=== PATIENT | male | born 1950 | race Caucasian/White ===

== ENCOUNTER 2021-07-27 22:28 | Emergency (ER) | payer OTHER ==
[~2021-07-27] VITALS: Ht 190.5 cm; Wt 118.0 kg
[~2021-07-27 22:28] MED LIST: CLON1TAB96 PO; DOCU100C40 PO; GLIP5TAB13 PO; LANTUS SQ; NYSPWD TP; TRAM50TA2 PO; VENL150C58 PO
[2021-07-27 22:39] VITALS: BP 100/50
[2021-07-27 23:14] LABS: BASOPHILS # (AUTO) 0.1 X10'3 (0-0.2); BASOPHILS % (AUTO) 0.9 % (0-1); EOSINOPHILS # (AUTO) 0.1 X10'3 (0-0.9); EOSINOPHILS % (AUTO) 0.9 % (0-6); HEMATOCRIT 38.8 % (42.0-52.0); HEMOGLOBIN 13.3 g/dl (14.0-17.9); LYMPHOCYTES # (AUTO) 2.2 X10'3 (1.1-4.8); LYMPHOCYTES % (AUTO) 29.1 % (21-51); MEAN CORPUSCULAR HEMOGLOBIN 32.6 PG (27.0-31.0); MEAN CORPUSCULAR HGB CONC 34.3 g/dL (33.0-36.5); MEAN CORPUSCULAR VOLUME 95.2 FL (78-98); MEAN PLATELET VOLUME 9.3 FL (7.4-10.4); MONOCYTES # (AUTO) 0.8 X10'3 (0-0.9); MONOCYTES % (AUTO) 9.9 % (2-12); NEUTROPHILS # (AUTO) 4.5 X10'3 (1.8-7.7); NEUTROPHILS % (AUTO) 59.2 % (42-75); PLATELET COUNT 215 X10'3 (140-440); RED BLOOD COUNT 4.07 X10'6 (4.70-6.10); RED CELL DISTRIBUTION WIDTH 14.3 % (11.5-14.5); WHITE BLOOD COUNT 7.6 X10'3 (4.5-11.0)
[2021-07-27 23:26] LABS: ALANINE AMINOTRANSFERASE 33 U/L (12-78); ALBUMIN 3.6 G/DL (3.4-5.0); ALKALINE PHOSPHATASE 67 IU/L (46-116); ANION GAP 10 (8-16); ASPARTATE AMINO TRANSFERASE 25 U/L (10-37); BILIRUBIN,TOTAL 1.2 MG/DL (0.1-1.0); BLOOD UREA NITROGEN 19 MG/DL (7-18); BUN/CREATININE RATIO 13.9 (5.4-32.0); CALCIUM 9.6 MG/DL (8.5-10.1); CHLORIDE 107 MMOL/L (99-107); CREATININE 1.37 MG/DL (0.60-1.10); GLUCOSE 149 MG/DL (70-104); LIPASE 152 U/L (73-393); POTASSIUM 3.8 MMOL/L (3.5-5.1); SODIUM 142 MMOL/L (135-145); TOTAL CARBON DIOXIDE 25.2 MMOL/L (24-32); TOTAL PROTEIN 7.3 G/DL (6.4-8.2); eGFR 52 ML/MIN
[2021-07-28] MEDS ORDERED: morphine 4 MG/ML inj SYRINge IV ONE (00:05)
[2021-07-28] MEDS ORDERED: ondansetron/PF 4mg/2ml inj IV ONE (00:05)
[2021-07-28 00:11] LABS: CLARITY,URINE CLEAR (Clear); COLOR,URINE YELLOW (Yellow); GLUCOSE, URINE NEGATIVE (Neg); KETONES,URINE NEGATIVE (Neg); LEUKOCYTE ESTERASE ,URINE NEGATIVE (Neg); NITRITES, URINE NEGATIVE (Neg); OCCULT BLOOD,URINE NEGATIVE (Neg); PH,URINE 5.5 (4.8-8.0); PROTEIN,URINE NEGATIVE (Neg); UROBILINOGEN,URINE 0.2 E.U/dL (0.2-1.0)
[2021-07-28 00:18] LABS: UA COLLECTION TYPE CLN CATCH MIDSTREAM
== END 2021-07-28 01:30 | disposition home or self-care (01) ==
LOC: ER 22:29
DX: N21.0 Calculus in bladder (principal); E78.00 Pure hypercholesterolemia, unspecified; E11.9 Type 2 diabetes mellitus without complications; F32.9 Major depressive disorder, single episode, unspecified; Z79.899 Other long term (current) drug therapy
CPT/HCPCS: 36415; 74176; 80053; 81003; 83690; 85025; 96374; 96375; 99284; J2270; J2405

== ENCOUNTER 2022-01-07 16:30 | Emergency (ER) | payer OTHER ==
[~2022-01-07] VITALS: Ht 190.5 cm; Wt 109.1 kg
[2022-01-07 17:03] VITALS: BP 164/74
[2022-01-07] MEDS ORDERED: CefTRIAXone 1000mg IM Kit (w/lidocaine diluent) IM STA (18:18)
[2022-01-07] MEDS ORDERED: DOXYCYCLINE 100MG CAPSULE PO ONE (18:20)
[2022-01-07] MEDS ORDERED: DOXY-1 PO (18:21)
[2022-01-07] MEDS ORDERED: fluconazole 150mg tablet PO ONE (19:30)
[2022-01-07 19:42] LABS: CLARITY,URINE CLEAR (Clear); COLOR,URINE YELLOW (Yellow); GLUCOSE, URINE NEGATIVE (Neg); KETONES,URINE NEGATIVE (Neg); LEUKOCYTE ESTERASE ,URINE NEGATIVE (Neg); NITRITES, URINE NEGATIVE (Neg); OCCULT BLOOD,URINE NEGATIVE (Neg); PROTEIN,URINE NEGATIVE (Neg); UROBILINOGEN,URINE 0.2 E.U/dL (0.2-1.0)
[2022-01-07 19:54] LABS: UA COLLECTION TYPE VOIDED
== END 2022-01-07 20:07 | disposition home or self-care (01) ==
LOC: ER 16:31
DX: N45.1 Epididymitis (principal); B35.6 Tinea cruris; N50.811 Right testicular pain; E78.00 Pure hypercholesterolemia, unspecified; E11.9 Type 2 diabetes mellitus without complications; Z87.442 Personal history of urinary calculi; Z85.038 Personal history of other malignant neoplasm of large intestine; Z91.041 Radiographic dye allergy status; Z79.4 Long term (current) use of insulin; Z79.2 Long term (current) use of antibiotics; Z79.899 Other long term (current) drug therapy
CPT/HCPCS: 36415; 76870; 81003; 87491; 87591; 93976; 96372; 99284; J0696

== ENCOUNTER 2024-04-02 16:00 | Emergency (ER) | payer OTHER, MEDICARE ==
[~2024-04-02] VITALS: Ht 188 cm; Wt 105.0 kg
[~2024-04-02 16:00] MED LIST changes: -GLIP5TAB13 PO; +GLIP5TAB23 PO
[2024-04-02 17:40] LABS: BASOPHILS % (AUTO) 0.4 % (0-1); EOSINOPHILS # (AUTO) 0.1 X10'3 (0-0.9); EOSINOPHILS % (AUTO) 0.9 % (0-6); HEMATOCRIT 37.6 % (42.0-52.0); HEMOGLOBIN 12.7 g/dl (14.0-17.9); LYMPHOCYTES # (AUTO) 1.8 X10'3 (1.1-4.8); LYMPHOCYTES % (AUTO) 22.5 % (21-51); MEAN CORPUSCULAR HEMOGLOBIN 31.9 PG (27.0-31.0); MEAN CORPUSCULAR HGB CONC 33.8 g/dL (33.0-36.5); MEAN CORPUSCULAR VOLUME 94.4 FL (78-98); MEAN PLATELET VOLUME 9.6 FL (7.4-10.4); MONOCYTES # (AUTO) 0.6 X10'3 (0-0.9); MONOCYTES % (AUTO) 7.9 % (2-12); NEUTROPHILS # (AUTO) 5.5 X10'3 (1.8-7.7); NEUTROPHILS % (AUTO) 68.3 % (42-75); PLATELET COUNT 171 X10'3 (140-440); RED BLOOD COUNT 3.98 X10'6 (4.70-6.10); RED CELL DISTRIBUTION WIDTH 14.1 % (11.5-14.5); WHITE BLOOD COUNT 8.1 X10'3 (4.5-11.0)
[2024-04-02 17:49] LABS: ALBUMIN 3.4 G/DL (3.4-5.0); ANION GAP 10 (8-16); BLOOD UREA NITROGEN 14 MG/DL (7-18); BUN/CREATININE RATIO 10.9 (10.0-20.0); CALCIUM 9.2 MG/DL (8.5-10.1); CHLORIDE 105 MMOL/L (99-107); CREATININE 1.29 MG/DL (0.60-1.10); GLUCOSE 161 MG/DL (70-104); POTASSIUM 3.8 MMOL/L (3.5-5.1); SODIUM 140 MMOL/L (135-145); TOTAL CARBON DIOXIDE 25.1 MMOL/L (24-32); eCRCL 61 ML/MIN; eGFR 55 ML/MIN
[2024-04-02] MEDS: normal saline 1000ML IV soln IVB ONE ×2 (19:15)
[2024-04-02] MEDS: QUEtiapine 25mg tablet PO STA (20:50)
[2024-04-03 06:25] LABS: BILIRUBIN,URINE NEGATIVE (Neg); CLARITY,URINE CLEAR (Clear); COLOR,URINE YELLOW (Yellow); GLUCOSE, URINE NEGATIVE (Neg); KETONES,URINE NEGATIVE (Neg); LEUKOCYTE ESTERASE ,URINE NEGATIVE (Neg); NITRITES, URINE NEGATIVE (Neg); OCCULT BLOOD,URINE NEGATIVE (Neg); PROTEIN,URINE NEGATIVE (Neg); UROBILINOGEN,URINE 0.2 E.U/dL (0.2-1.0)
[2024-04-03 06:32] LABS: UA COLLECTION TYPE CLN CATCH MIDSTREAM
[2024-04-03 13:46] VITALS: BP 140/75; PULSE 48; RESP 22; TEMP 98.6; O2SAT 98
== END 2024-04-03 13:49 | disposition home or self-care (01) ==
LOC: ER 16:01
DX: R41.0 Disorientation, unspecified (principal); F29 Unspecified psychosis not due to a substance or known physiological condition; E78.00 Pure hypercholesterolemia, unspecified; E11.9 Type 2 diabetes mellitus without complications; F32.A Depression, unspecified; Z91.041 Radiographic dye allergy status; Z79.899 Other long term (current) drug therapy; Z79.4 Long term (current) use of insulin
CPT/HCPCS: 36415; 71045; 80048; 81003; 84145; 84484; 85025; 93005; 96360; 96361; 99285; J7030

== ENCOUNTER 2024-04-04 10:44 | Emergency (ER) | payer OTHER, MEDICARE ==
[~2024-04-04] VITALS: Ht 180.3 cm; Wt 81.8 kg
[2024-04-04 14:22] VITALS: BP 126/73; PULSE 73; RESP 14; TEMP 98.6; O2SAT 96
== END 2024-04-04 14:25 | disposition home or self-care (01) ==
LOC: ER 10:45
DX: R41.82 Altered mental status, unspecified (principal); E11.9 Type 2 diabetes mellitus without complications; Z91.041 Radiographic dye allergy status
CPT/HCPCS: 82948; 99282

== ENCOUNTER 2024-12-24 22:01 | Emergency (ER) | payer OTHER, MEDICARE ==
[~2024-12-24] VITALS: Ht 190.5 cm; Wt 102.0 kg
[2024-12-24 22:07] VITALS: TEMP 98
--- NOTE | 2024-12-24 22:31 | Physician Documentation ---
History of Present Illness General Chief Complaint: Hyperglycemia Stated Complaint: MED CLEARANCE Time Seen by MD: 22:17 Primary Medical Doctor: [facility] History of Present Illness Initial Comments 74-year-old male sent to the emergency department with the [facility] for evaluation of hypoglycemia weakness and a recent fall. Patient not on blood thinners the dinner have a head strike today. Patient is noted to have a high blood sugar of 500. He was refusing any care and all request an amp which he was. He was well alert and he was oriented. 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 States that he was not trying to hurt himself he just refused medical treatment. Medication Reconciliation Allergies: Coded Allergies: Iodinated Contrast Media (Verified Allergy, Unknown, 04/11/24) Scheduled Clonazepam (Clonazepam), 1 TAB PO TID PRN, (Reported) Docusate Sodium (Docusate Sodium), 100 MG PO BID Glipizide (Glipizide), 1.5 TAB PO Q12H, (Reported) Insulin Glargine,Hum.rec.anlog (Lantus Solostar), 50 UNIT SQ HS, (Reported) Nystatin (NYSTOP powder), 1 APPLIC TP TID Venlafaxine Hcl (Venlafaxine Hcl Er), 1 CAP PO DAILY, (Reported) Scheduled PRN Tramadol HCl (Tramadol HCl), 1 TABLET PO Q6H PRN for moderate or severe pain, (Reported) Past Medical History Past Medical History: High Cholesterol, *GI/HEPATOBILIARY*, Kidney Stones, Diabetes, Colon Cancer, Depression Past Surgical History: cancer surgery Alcohol Use: None Drug Use: none Lives In: Home Review of Systems All Other Systems at this time: Reviewed and Negative Constitutional: Reports: weakness Physical Exam Physical Exam Vital Signs: RN Vital Signs have been reviewed: Yes, Temperature: 98.0, Source: Oral, Heart Rate: 99, Respiratory Rate: 16, BP: 137/80, Pulse Oximetry: 99, Weight: 102.000 General Appearance: cachetic Head: normal inspection Face: normal inspection Pupils/EOM/Fundus: PERRLA Respiratory: normal breath sounds Cardiovascular: regular rate, rhythm Neurologic: oriented x4 Motor / Sensory: no motor deficit, no sensory deficit Psychiatric: normal mood/affect Skin: normal color, warm/dry Progress Results/Orders Results/Orders Vital Signs 5/4/25 5/4/25 5/4/25 22:03 22:07 22:32 Temp 98.0 98.0 Pulse 99 99 92 Resp 19 16 16 B/P (MAP) 137/80 137/80 (99) 133/75 Pulse Ox 99 99 97 Laboratory Tests Test 12/24/24 22:03 Glucometer 583 *H Medical Decision Making Differential Diagnosis Medical screening examination performed. Patient was adamant about receiving any sort of medical treatment. Attempts to coax patient allow lab work with a without IV fluid hydration. Patient declines both. Additionally he advised patient in a that I could just give him subcutaneous insulin & abstain from lab work however he continues to refuse that. He has been advised the risks returned to the benefits to leaving against medical advice including and he signs. This was in the presence of [facility] Corporate Relations Director. Patient did allow medical screening examination to include heart and lung auscultation. He has been discharged against medical with a advised to return to [facility]. Departure Disposition: LEFT AGAINST MEDICAL ADVICE Impression: Primary Impression: Hyperglycemia Additional Impressions: Encounter for medical screening examination Medical clearance for incarceration Condition: Guarded Discharge Instructions: Hyperglycemia, [id number] Additional Instructions: Tonight and in the emergency department if you have signed against medical advice. Even advised the risks alternatives benefits of receiving treatment and refusing treatment up to including . Please report any medical concerns the [facility] staff. Please return to the emergency department as needed. You have been cleared to return to incarceration Referrals: NO PRIMARY CARE PROVIDER (PCP) Signature Scribe Signature: . Attestation: . EBONI FERRELL PAC December 24, 2024 22:31
[2024-12-24 22:32] VITALS: BP 133/75; PULSE 92; RESP 16; O2SAT 97
== END 2024-12-24 23:07 | disposition left against medical advice (07) ==
LOC: ER 22:01
DX: E11.65 Type 2 diabetes mellitus with hyperglycemia (principal); Z02.89 Encounter for other administrative examinations; F32.A Depression, unspecified; E78.00 Pure hypercholesterolemia, unspecified; Z85.038 Personal history of other malignant neoplasm of large intestine; Z91.041 Radiographic dye allergy status
CPT/HCPCS: 82948; 99284